=== PATIENT | female | born 1975 | race Caucasian/White ===

== ENCOUNTER 2016-11-02 08:30 | Emergency (ER) | payer BC ==
[2016-11-02] MEDS ORDERED: PROMETHAZINE HCL 25 MG/ML VIAL IVP ONE (08:54)
[2016-11-02 09:16] LABS: BASO % 0.6 % (0-6); EOS % 2.3 % (0-6); GRAN % 63.2 % (47-80); HEMATOCRIT 42.5 % (35.0-47.0); HEMOGLOBIN 13.5 gm/dl (11.6-16.0); LYMPH % 26.3 % (16-45); MEAN CELL VOLUME 92.4 fl (81-97); MEAN CORPUSCULAR HEMOGLOBIN 29.3 pg (27-33); MEAN CORPUSCULAR HGB CONC 31.8 g/dl (32-36); MEAN PLATELET VOLUME 9.9 fl (7.4-10.4); MONO % 7.6 % (0-9); PLATELET COUNT 697 K/uL (130-400); RED CELL DISTRIBUTION WIDTH 15.3 % (11.5-14.5); WHITE BLOOD COUNT W/O DIFF 14.7 K/uL (4.2-12.2)
--- NOTE | 2016-11-02 09:19 | Emergency Department Record ---
History of Present Illness - General Chief Complaint: Dizziness Stated Complaint: dizzy,high bp Time Seen by Provider: 11/02/16 08:45 Source: Patient Mode of Arrival: Ambulatory Limitations: No limitations - History of Present Illness Initial Comments: pt has been dizzy for 3 days. when she lays flat the room spins and she becomes nauseated. she has to stand slowly as she gets dizzy with this as well. no injury, no headache Onset/Timin -: Days(s) Timing: Unsure Description: Lightheadedness, Nausea, Off-balance, "Room spinning" History of Same: No History of Trauma: No Severity: Moderate Improves With: Rest - Leandro Coma Scale Eye Response: (4) Open spontaneously Motor Response: (6) Obeys commands Verbal Response: (5) Oriented Bentley Total: 15 - Symptoms of Stroke Symptoms of stroke: Dizziness, Vertigo - Related Data Home Medications Medication Instructions Recorded Confirmed Last Taken Loperamide HCl [Imodium A-D] 2 mg PO DAILY PRN 11/02/16 11/02/16 Unknown Previous Rx's Medication Instructions Recorded Meclizine HCl [Antivert] 25 mg PO Q8H #14 tablet 11/02/16 Allergies Allergy/AdvReac Type Severity Reaction Status Date / Time No Known Drug Allergies Allergy Verified 11/02/16 08:42 Travel Screening - Travel/Exposure Within Last 30 Days Have you traveled within the last 30 days?: No - Travel/Exposure Within Last Year Have you traveled outside the [place] in the last year?: No - Additonal Travel Details Have you been exposed to anyone with a communicable illness?: No - Travel Symptoms Symptom Screening: None Review of Systems Reviewed: No additional complaints except as noted below Constitutional: Reports: As per HPI. Denies: Chills, Fever, Malaise, Night sweats, Weakness, Weight change Eyes: Reports: As per HPI. Denies: Eye discharge, Eye pain, Photophobia, Vision change ENT: Reports: As per HPI. Denies: Congestion, Dental pain, Ear pain, Epistaxis , Hearing loss, Throat pain Respiratory: Reports: As per HPI. Denies: Cough, Dyspnea, Hemoptysis, Stridor, Wheezes Cardiovascular: Reports: As per HPI. Denies: Arrhythmia, Chest pain, Dyspnea on exertion, Edema, Murmurs, Orthopnea, Palpitations, Paroxysmal nocturnal dyspnea, Rheumatic Fever, Syncope Endocrine: Reports: As per HPI. Denies: Fatigue, Heat or cold intolerance, Polydipsia, Polyuria Gastrointestinal: Reports: As per HPI. Denies: Abdominal pain, Constipation, Diarrhea, Hematemesis, Hematochezia, Melena, Nausea, Vomiting Genitourinary: Reports: As per HPI. Denies: Abnormal menses, Discharge, Dyspareunia, Dysuria, Frequency, Hematuria, Incontinence, Retention, Urgency Musculoskeletal: Reports: As per HPI. Denies: Arthralgia, Back pain, Gout, Joint swelling, Myalgia, Neck pain Skin: Reports: As per HPI. Denies: Bruising, Change in color, Change in hair/ nails, Lesions, Pruritus, Rash Neurological: Reports: As per HPI. Denies: Abnormal gait, Confusion, Headache, Numbness, Paresthesias, Seizure, Tingling, Tremors, Vertigo, Weakness Psychiatric: Reports: As per HPI. Denies: Anxiety, Auditory hallucinations, Depression, Homicidal thoughts, Suicidal thoughts, Visual hallucinations Hematological/Lymphatic: Reports: As per HPI. Denies: Anemia, Blood Clots, Easy bleeding, Easy bruising, Swollen glands Past Medical History - SOCIAL HISTORY Smoking Status: Never smoker Alcohol Use: None Drug Use: None - RESPIRATORY Hx Respiratory Disorders: No - CARDIOVASCULAR Hx Cardio Disorders: No - NEURO Hx Neuro Disorders: No - GI Hx GI Disorders: Yes Hx Crohn's Disease: Yes Hx Ulcer: Yes - Hx Genitourinary Disorders: No - ENDOCRINE Hx Endocrine Disorders: No - MUSCULOSKELETAL Hx Musculoskeletal Disorders: No - PSYCH Hx Psych Problems: No - HEMATOLOGY/ONCOLOGY Hx Hematology/Oncology Disorders: No Family Medical History Any Significant Family History?: Yes Hx Diabetes: Grandparents Hx Stroke: Father, Grandparents Physical Exam - General General Appearance: Alert, Oriented x3, Cooperative, Mild distress - Head Head exam: Normal inspection - Eye Eye exam: Normal appearance, PERRL, EOMI Pupils: Normal accommodation - ENT ENT exam: Normal exam, Mucous membranes moist, Normal external ear exam, Normal orophraynx, TM's normal bilaterally Ear exam: Normal external inspection. negative: External canal tenderness Nasal Exam: Normal inspection. negative: Discharge, Sinus tenderness Mouth exam: Normal external inspection, Tongue normal Teeth exam: Normal inspection. negative: Dental caries Throat exam: Normal inspection. negative: Tonsillar erythema, Tonsillar exudate - Neck Neck exam: Normal inspection, Full ROM. negative: Tenderness - Respiratory Respiratory exam: Normal lung sounds bilaterally. negative: Respiratory distress - Cardiovascular Cardiovascular Exam: Regular rate, Normal rhythm, Normal heart sounds - GI/Abdominal GI/Abdominal exam: Soft, Normal bowel sounds. negative: Tenderness - Rectal Rectal exam: Deferred - exam: Deferred - Extremities Extremities exam: Normal inspection, Full ROM, Normal capillary refill. negative: Tenderness - Back Back exam: Reports: Normal inspection, Full ROM. Denies: Muscle spasm, Rash noted, Tenderness - Neurological Neurological exam: Alert, CN II-XII intact, Normal gait, Oriented X3, Reflexes normal - Psychiatric Psychiatric exam: Normal affect, Normal mood - Skin Skin exam: Dry, Intact, Normal color, Warm Course Vital Signs 11/02/16 08:37 Temperature 98.1 F Pulse Rate 83 Respiratory 20 Rate Blood Pressure 147/91 Pulse Ox 94 L - Reevaluation(s) Reevaluation #1: 11/02/16 09:51 pt feels better Reevaluation #2: 11/02/16 10:04 pt feels much better. she states she always has a high wbc Medical Decision Making - Lab Data Result diagrams: 11/02/16 09:07 11/02/16 09:07 Disposition Disposition: Discharge Clinical Impression: Vertigo Benign positional vertigo Qualifiers: Laterality: unspecified laterality Qualified Code(s): H81.10 - Benign paroxysmal vertigo, unspecified ear Hypertension Qualifiers: Hypertension type: essential hypertension Qualified Code(s): I10 - Essential ( primary) hypertension Disposition: Home, Self-Care Condition: (1) Good Instructions: Vertigo (ED), Benign Paroxysmal Positional Vertigo (ED), Hypertension (ED) Additional Instructions: follow up with family doctor next week. return sooner if worse. recheck blood pressure daily Prescriptions: Meclizine HCl [Antivert] 25 mg PO Q8H #14 tablet Forms: Patient Portal Access
[2016-11-02 09:27] LABS: ANION GAP 10.6 (7-16); BLOOD UREA NITROGEN 18 mg/dL (7-17); CARBON DIOXIDE 24.4 mmol/L (22-30); CREATININE 0.7 mg/dL (0.52-1.04); EST GLOMERULAR FILTRATION RATE > 60 ml/min; GLUCOSE,RANDOM 98 mg/dL (70-110)
== END 2016-11-02 10:23 | disposition home or self-care (01) ==
LOC: ER 08:30
DX: H81.10 Benign paroxysmal vertigo, unspecified ear (principal); I10 Essential (primary) hypertension; R11.0 Nausea
CPT/HCPCS: 70450; 80048; 85025; 96374; 99284; J2550

== ENCOUNTER 2017-01-21 10:12 | Emergency (ER) | payer BC ==
[2017-01-21] MEDS ORDERED: 0.9 % SODIUM CHLORIDE 1,000 ML BAG IV ONE (10:49)
--- NOTE | 2017-01-21 10:50 | Emergency Department Record ---
History of Present Illness - General Chief Complaint: Abdominal Pain Stated Complaint: BACK PAIN Time Seen by Provider: 01/21/17 10:37 Source: Patient Mode of Arrival: Wheelchair - History of Present Illness Initial Comments: The patient was sent here from [facility], [place] because of an elevated WBC and 3 days of abdominal pain. Her pain is epigastric, RUQ, LUQ, LLQ, it radiates through to her back at the lower thoracic level and around both sides posteriorly. She has nausea without vomiting, no f,c,URI symptoms. She had her GB removed 18 months ago, and has a history of colitis with chronic diarrhea on immodium. She denies black or bloody stools. MD Complaint: Abdominal pain Onset/Timin -: Days(s) Location: Diffuse, Epigastric Radiation: Back Migration to: No migration Severity: Moderate Quality: Aching Consistency: Constant Improves With: Nothing Worsens With: Other Associated Symptoms: Diarrhea, Nausea - Related Data LMP (females 10-50): Current Patient : No Home Medications Medication Instructions Recorded Confirmed Last Taken Loperamide HCl [Imodium A-D] 2 mg PO DAILY PRN 11/02/16 01/21/17 Unknown Previous Rx's Medication Instructions Recorded Ciprofloxacin HCl [Cipro] 500 mg PO Q12HR #14 tablet 01/21/17 Allergies Allergy/AdvReac Type Severity Reaction Status Date / Time No Known Drug Allergies Allergy Unverified 01/21/17 08:47 Travel Screening - Travel/Exposure Within Last 30 Days Have you traveled within the last 30 days?: No Review of Systems Reviewed: No additional complaints except as noted below Constitutional: Reports: As per HPI. Denies: Chills, Fever, Malaise, Night sweats, Weakness, Weight change Eyes: Reports: As per HPI. Denies: Eye discharge, Eye pain, Photophobia, Vision change ENT: Reports: As per HPI. Denies: Congestion, Dental pain, Ear pain, Epistaxis , Hearing loss, Throat pain Respiratory: Reports: As per HPI. Denies: Cough, Dyspnea, Hemoptysis, Stridor, Wheezes Cardiovascular: Reports: As per HPI. Denies: Arrhythmia, Chest pain, Dyspnea on exertion, Edema, Murmurs, Orthopnea, Palpitations, Paroxysmal nocturnal dyspnea, Rheumatic Fever, Syncope Endocrine: Reports: As per HPI. Denies: Fatigue, Heat or cold intolerance, Polydipsia, Polyuria Gastrointestinal: Reports: As per HPI. Denies: Abdominal pain, Constipation, Diarrhea, Hematemesis, Hematochezia, Melena, Nausea, Vomiting Genitourinary: Reports: As per HPI. Denies: Abnormal menses, Discharge, Dyspareunia, Dysuria, Frequency, Hematuria, Incontinence, Retention, Urgency Musculoskeletal: Reports: As per HPI. Denies: Arthralgia, Back pain, Gout, Joint swelling, Myalgia, Neck pain Skin: Reports: As per HPI. Denies: Bruising, Change in color, Change in hair/ nails, Lesions, Pruritus, Rash Neurological: Reports: As per HPI. Denies: Abnormal gait, Confusion, Headache, Numbness, Paresthesias, Seizure, Tingling, Tremors, Vertigo, Weakness Psychiatric: Reports: As per HPI. Denies: Anxiety, Auditory hallucinations, Depression, Homicidal thoughts, Suicidal thoughts, Visual hallucinations Hematological/Lymphatic: Reports: As per HPI. Denies: Anemia, Blood Clots, Easy bleeding, Easy bruising, Swollen glands Past Medical History - SOCIAL HISTORY Smoking Status: Never smoker Alcohol Use: None Drug Use: None - RESPIRATORY Hx Respiratory Disorders: No - CARDIOVASCULAR Hx Cardio Disorders: No - NEURO Hx Neuro Disorders: No Hx Dizziness: Yes - GI Hx GI Disorders: Yes Hx Crohn's Disease: Yes Comment:: colitis - Hx Genitourinary Disorders: No - ENDOCRINE Hx Endocrine Disorders: No - MUSCULOSKELETAL Hx Musculoskeletal Disorders: No - PSYCH Hx Psych Problems: No - HEMATOLOGY/ONCOLOGY Hx Hematology/Oncology Disorders: No Family Medical History Any Significant Family History?: Yes Hx Diabetes: Grandparents Hx Stroke: Father, Grandparents Physical Exam - General General Appearance: Alert, Oriented x3, Cooperative, Mild distress, Other (obese , standing at bedside "its feels better to stand") - Head Head exam: Normal inspection - Eye Eye exam: Normal appearance, PERRL, EOMI Pupils: Normal accommodation - ENT ENT exam: Normal exam, Mucous membranes dry, Normal external ear exam, Normal orophraynx, TM's normal bilaterally Ear exam: Normal external inspection. negative: External canal tenderness Nasal Exam: Normal inspection. negative: Discharge, Sinus tenderness Mouth exam: Normal external inspection, Tongue normal Teeth exam: Normal inspection. negative: Dental caries Throat exam: Normal inspection. negative: Tonsillar erythema, Tonsillar exudate - Neck Neck exam: Normal inspection, Full ROM. negative: Tenderness - Respiratory Respiratory exam: Normal lung sounds bilaterally. negative: Respiratory distress - Cardiovascular Cardiovascular Exam: Regular rate, Normal rhythm, Normal heart sounds - GI/Abdominal GI/Abdominal exam: Soft, Normal bowel sounds, Tenderness (Epigastric, RUQ, LUQ and LLQ tender on palpation). negative: Rebound, Rigid - Rectal Rectal exam: Deferred - exam: Deferred - Extremities Extremities exam: Normal inspection, Full ROM, Normal capillary refill. negative: Tenderness - Back Back exam: Reports: Normal inspection, Full ROM. Denies: CVA tenderness (R), CVA tenderness (L), Muscle spasm, Rash noted, Tenderness, Vertebral tenderness - Neurological Neurological exam: Alert, CN II-XII intact, Normal gait, Oriented X3, Reflexes normal - Psychiatric Psychiatric exam: Normal affect, Normal mood - Skin Skin exam: Dry, Intact, Normal color, Warm Course Vital Signs 01/21/17 10:14 Temperature 98.1 F Pulse Rate 76 Respiratory 20 Rate Blood Pressure 147/110 Pulse Ox 99 - Reevaluation(s) Reevaluation #1: The patient states that her pain remain unchanged after zofran and bentyl. CT shows no acute abnormality, chronic small lymph nodes in colon consistent with her known enteritis, and no wall thickening or inflamatory changes at this time. There is a small fat containing umbilical hernia. Discussed results with An Eden N.P. who referred this case to the EDept. She agrees to follow patient in the clinic, get her PCP follow up care. GI consult will be obtained at discharge today. 01/21/17 14:13 Medical Decision Making - Management Options MDM Management: Additional Work-up Planned (e.g. ADM/Transfer/OP Study) ( Consult GI) - Data Complexity MDM Data: Labs Ordered and/or Reviewed (WBC 14.8 58 neutr.), X-Ray Ordered and/ or Reviewed (AbdPelvis Contrast CT: No acute abnormality, small mesenteric lymphnodes consistent with enteritis, but no wall thickening or inflamatory changes. Small fat-containing umbilical hernia noted.) Disposition Disposition: Discharge Clinical Impression: Chronic nonspecific colitis Abdominal pain Qualifiers: Abdominal location: unspecified location Qualified Code(s): R10.9 - Unspecified abdominal pain Disposition: Home, Self-Care Condition: (1) Good Instructions: Abdominal Pain (ED) Additional Instructions: Take antibiotics as directed until gone. Follow with Alo Mackay as needed. [facility] Consult to [facility] as instructed. Prescriptions: Ciprofloxacin HCl [Cipro] 500 mg PO Q12HR #14 tablet Referrals: DIAMOND HERNANDEZ [DOCTOR OF OSTEOPATH] - Quality - Quality Measures Quality Measures: N/A - Blood Pressure Screening Blood Pressure Classification: Hypertensive Reading Systolic Measurement: 147 Diastolic Measurement: 110 Screening for High Blood Pressure: < Second Hypertensive BP, F/U Documented > [ G8950] Second Hypertensive Follow-up Interventions: Referral to alternative/primary care provider.
[2017-01-21] MEDS ORDERED: ONDANSETRON HCL IV 4 MG/2 ML VIAL IVP ONE (11:00)
[2017-01-21] MEDS ORDERED: DICYCLOMINE HCL 10 MG/ML AMPUL IM ONE (11:01)
--- NOTE | 2017-01-22 07:18 | CT SCAN REPORT ---
EXAM: CT OF THE ABDOMEN AND PELVIS WITH CONTRAST HISTORY: PAIN. TECHNIQUE: Sequential axial images were obtained from the diaphragms through the ischiorectal fossa after intravenous and oral administration of 100 ml of Omnipaque 300 contrast material. FINDINGS: The visualized lung bases are clear. The liver appears homogeneous. The gallbladder has been surgically removed. The pancreas and spleen appear normal. The adrenal glands and kidneys appear normal. The small and large bowel appears normal. There are small mesenteric lymph nodes. Findings are likely related to gastroenteritis. The urinary bladder appears normal. The uterus and adnexal structures are normal. The osseous structures are normal. IMPRESSION: 1. NONSPECIFIC SMALL MESENTERIC LYMPH NODES. FINDINGS ARE LIKELY RELATED TO ENTERITIS. 2. THE GALLBLADDER HAS BEEN SURGICALLY REMOVED. NO SMALL OR LARGE BOWEL ABNORMALITIES. 3. FAT CONTAINING UMBILICAL HERNIA. JOB NUMBER: [id number] [facility]
== END 2017-01-21 14:55 | disposition home or self-care (01) ==
LOC: ER 10:12
DX: K52.9 Noninfective gastroenteritis and colitis, unspecified (principal); R10.13 Epigastric pain; R19.7 Diarrhea, unspecified; R11.0 Nausea; D72.829 Elevated white blood cell count, unspecified
CPT/HCPCS: 99284 ×2; 96374; 96372; 96361; 74177; Q9967; J2405

== ENCOUNTER 2017-12-01 08:42 | Emergency (ER) | payer BC ==
[2017-12-01] MEDS ORDERED: 0.9 % SODIUM CHLORIDE 1,000 ML BAG IV ONE (09:21)
[2017-12-01] MEDS ORDERED: ONDANSETRON HCL IV 4 MG/2 ML VIAL IV ONE (09:21)
[2017-12-01] MEDS ORDERED: CEFTRIAXONE SODIUM 1 GM in 0.9 % SODIUM CHLORIDE 100ML 100 ML IVPB ONE (09:22)
--- NOTE | 2017-12-01 09:29 | Emergency Department Record ---
History of Present Illness - General Chief Complaint: Abdominal Pain Stated Complaint: ABD PAIN Time Seen by Provider: 12/01/17 09:05 Source: Patient Mode of Arrival: Ambulatory Limitations: No limitations - History of Present Illness Initial Comments: The patient is here due to AP for one week. The pain is located just above the umbilicus and is aching. It is worse with any palpation or pressure being placed there. The patient denies any nausea, vomiting, new diarrhea, fever, dysuria, or chills. She does have a hx of Ulcerative Colitis but that is a chronic problem and there has been no changes with that issue. She has had her GB removed but still has her appendix. MD Complaint: Abdominal pain Onset/Timin -: Week(s) Location: Periumbilical Radiation: None Severity scale (1-10): 3 Quality: Other Consistency: Constant Improves With: Nothing Worsens With: Movement Associated Symptoms: Denies other symptoms - Related Data LMP (females 10-50): This week Patient : No Previous Rx's Medication Instructions Recorded Amoxicillin/Potassium Clav 10 ml PO BID #140 ml 12/01/17 [Augmentin 400Mg/5Ml] Allergies Allergy/AdvReac Type Severity Reaction Status Date / Time No Known Drug Allergies Allergy Unverified 01/21/17 08:47 Travel Screening - Travel/Exposure Within Last 30 Days Have you traveled within the last 30 days?: No Review of Systems Constitutional: Denies: Chills, Fever Eyes: Denies: Eye discharge ENT: Denies: Congestion, Other Respiratory: Denies: Cough, Dyspnea Past Medical History - SOCIAL HISTORY Smoking Status: Never smoker Alcohol Use: None Drug Use: None - RESPIRATORY Hx Respiratory Disorders: No - CARDIOVASCULAR Hx Cardio Disorders: No - NEURO Hx Neuro Disorders: No Hx Dizziness: Yes - GI Hx GI Disorders: Yes Hx Crohn's Disease: Yes Comment:: colitis - Hx Genitourinary Disorders: No - ENDOCRINE Hx Endocrine Disorders: No - MUSCULOSKELETAL Hx Musculoskeletal Disorders: No - PSYCH Hx Psych Problems: No - HEMATOLOGY/ONCOLOGY Hx Hematology/Oncology Disorders: No Family Medical History Any Significant Family History?: Yes Hx Diabetes: Grandparents Hx Stroke: Father, Grandparents Physical Exam - General General Appearance: Alert, Oriented x3, Cooperative, No acute distress - Head Head exam: Atraumatic, Normocephalic, Normal inspection - Eye Eye exam: Normal appearance, PERRL - Neck Neck exam: Normal inspection, Full ROM. negative: Tenderness - Respiratory Respiratory exam: Normal lung sounds bilaterally. negative: Respiratory distress - Cardiovascular Cardiovascular Exam: Regular rate, Normal rhythm, Normal heart sounds - GI/Abdominal GI/Abdominal exam: Soft, Normal bowel sounds, Tenderness (There is tenderness just above the umbilicus where there is a 6x4 cm area of erythema present. There is no palpable abscess or hernia appreciated.). negative: Guarding, Pulsatile mass, Rebound, Rigid - Extremities Extremities exam: Normal inspection, Full ROM, Normal capillary refill. negative: Tenderness - Neurological Neurological exam: Alert. negative: Motor sensory deficit Course Vital Signs 12/01/17 09:01 Temperature 98.2 F Pulse Rate [ 88 Pulse Ox Probe] Respiratory 20 Rate Blood Pressure 178/121 [Left Arm] Pulse Ox 100 - Reevaluation(s) Reevaluation #1: The patent is doing better. I did discuss the inflamed hernia and will consult Dr. Mullins for Gen surg. The patient understands the need for NPO. 12/01/17 11:43 Reevaluation #2: The patient is doing very well at this time. She is resting comfortably with no pain or discomfort. I did discuss the case with Dr. Mullins and he accepts the patient for surgery. Due to the surgical schedule he is not able to do it until tomorrow and would like the patient discharged today. The patient understands this and will plan on the surgery tomorrow. I also did discuss the issues with the CT and infected hernia and the appendicolith. She is to go home on Augmentin and be NPO past midnight and have the surgery tomorrow at [facility]. 12/01/17 12:27 12/01/17 12:32 Reevaluation #3: I also did discuss the need to see her PCP for her BP. 12/01/17 14:12 Medical Decision Making - Data Complexity MDM Data: Labs Ordered and/or Reviewed, X-Ray Ordered and/or Reviewed - Lab Data Result diagrams: 12/01/17 09:55 12/01/17 09:55 - Radiology Data Radiology results: Report reviewed (CT: Periumbilical hernia with no bowel but appearing inflamed and infected. Incidental finding of Appendicolith.) Disposition Disposition: Discharge Clinical Impression: Abdominal wall hernia Disposition: Home, Self-Care Condition: (2) Stable Instructions: Abdominal Pain (ED) Additional Instructions: Please take the Clindamycin as directed and plan on surgery tomorrow with Dr. Mullins at [facility]. Please do not eat past midnight and take your home pain medicines. Return to the ER for any worsening symptoms, pain, fever, or vomiting. Prescriptions: Amoxicillin/Potassium Clav [Augmentin 400Mg/5Ml] 10 ml PO BID #140 ml Forms: Patient Portal Access Time of Disposition: 12:32 Quality - Quality Measures Quality Measures: N/A - Blood Pressure Screening View Details: Yes Does Patient Have Any of the Following: Active Dx of HTN Blood Pressure Classification: Hypertensive Reading Systolic Measurement: 171 Diastolic Measurement: 114 Screening for High Blood Pressure: Patient Exclusion, Hx of HTN [G9744]
[2017-12-01 10:02] LABS: HEMATOCRIT 42.7 % (35.0-47.0); MEAN CELL VOLUME 94.1 fl (81-97); MEAN CORPUSCULAR HEMOGLOBIN 30.8 pg (27-33); MEAN CORPUSCULAR HGB CONC 32.8 g/dl (32-36); MEAN PLATELET VOLUME 10.1 fl (7.4-10.4); PLATELET COUNT 602 K/uL (130-400); RED BLOOD COUNT 4.54 M/uL (3.80-5.40); RED CELL DISTRIBUTION WIDTH 15.2 % (11.5-14.5); WHITE BLOOD COUNT W/O DIFF 14.3 K/uL (4.2-12.2)
[2017-12-01 10:12] LABS: BLOOD UREA NITROGEN 15 mg/dL (6-20); PLATELET ESTIMATE NORMAL (NORMAL)
[2017-12-01 10:13] LABS: CREATININE 0.7 mg/dL (0.5-0.9); EST GLOMERULAR FILTRATION RATE > 60 mL/min; TOTAL PROTEIN 7.7 g/dL (6.6-8.7)
[2017-12-01 10:15] LABS: GLUCOSE,RANDOM 103 mg/dL (74-109)
[2017-12-01 10:18] LABS: ALKALINE PHOSPHATASE 87 U/L (35-104); ALT/SGPT 14 U/L (<33); AST/SGOT 16 U/L (10.0-35.0); BILIRUBIN,DIRECT < 0.2 mg/dL (0-0.3); LIPASE 29 U/L (13-60)
[2017-12-01] MEDS ORDERED: KETOROLAC 30 MG/ML VIAL IVP ONE (10:25)
--- NOTE | 2017-12-02 09:57 | CT SCAN REPORT ---
EXAM: CT OF THE ABDOMEN AND PELVIS WITHOUT CONTRAST HISTORY: ABDOMINAL PAIN ABOVE THE UMBILICUS FOR A WEEK. CHOLECYSTECTOMY. TECHNIQUE: Axial CT scan of the abdomen and pelvis was performed without oral or IV contrast. Comparison: CT abdomen and pelvis 01/21/17. FINDINGS: Postop cholecystectomy as before. No intrarenal calculi or hydronephrosis identified on either side. No hydroureter seen on either side with no definite ureteral calculus evident on either side and no bladder calculus evident. There is an anterior abdominal wall hernia containing adipose tissue, but no bowel. This was present previously as well, but has increased in size. The mouth of the hernia in the anterior abdominal wall measures about 1.7 cm in diameter and the hernia within the subcutaneous tissues itself measures about 5.1 cm in transverse x 4 cm in AP diameters and has some increased density suggesting some current inflammatory change. This inflammatory density appears to lead to the skin surface where there appears to be some thickening of the skin probably representing some associated cellulitis in the periumbilical region and correlation with physical exam suggested. Evaluation of the bowel and viscera itself limited by the lack of oral and IV contrast. Given this limitation, no definite hepatic or splenic mass seen. The spleen appears very small, but there is no history of prior splenectomy and presumably this is simply a very small, but otherwise unremarkable spleen. No definite adrenal, pancreatic, or renal mass identified. There is some mild scattered diverticulosis in the colon and there is probably a very large appendicolith at the base of the appendix measuring approximately 1.7 cm in size although no definite additional inflammatory changes seen to suggest acute appendicitis currently. There are numerous prominent scattered mesenteric nodes throughout the abdomen which may represent some mesenteric adenitis. No free intraperitoneal air or free intraperitoneal fluid identified. Mild spurring in the thoracic spine. IMPRESSION: 1. POSTOP CHOLECYSTECTOMY. 2. PROMINENT ANTERIOR ABDOMINAL WALL HERNIA SUPERIOR TO THE UMBILICUS, WITH INFLAMMATORY TYPE CHANGES LEADING FROM THIS TO THE SKIN ALONG THE SUPERIOR ASPECT OF THE UMBILICUS LIKELY REPRESENTING INFLAMMATORY CHANGE ASSOCIATED WITH THIS ABDOMINAL WALL HERNIA. NO BOWEL WITHIN THE HERNIA. 3. NUMEROUS MILDLY PROMINENT SCATTERED MESENTERIC NODES MAY REPRESENT MESENTERIC ADENITIS. 4. PROBABLE LARGE CALCIFIED APPENDICOLITH ALTHOUGH NO ADDITIONAL FINDINGS TO SUGGEST ACUTE APPENDICITIS CURRENTLY. [facility]: [id number] [facility]
== END 2017-12-01 13:04 | disposition home or self-care (01) ==
LOC: ER 08:42
DX: K43.9 Ventral hernia without obstruction or gangrene (principal)
CPT/HCPCS: 74176; 80048; 80076; 83690; 84703; 85027; 96365; 96375; 99284; J1885; J2405; J7030

== ENCOUNTER 2017-12-24 04:43 | Emergency (ER) | payer BC ==
[2017-12-24] MEDS ORDERED: 0.9 % SODIUM CHLORIDE 1,000 ML BAG IV ONE (05:13)
[2017-12-24] MEDS ORDERED: HYDROMORPHONE HCL 2 MG/ML VIAL IVP ONE (05:15)
[2017-12-24] MEDS ORDERED: ONDANSETRON HCL IV 4 MG/2 ML VIAL IVP ONE (05:15)
[2017-12-24 05:22] LABS: BASO % 0.5 % (0-6); GRAN % 51.1 % (47-80); HEMATOCRIT 43.3 % (35.0-47.0); HEMOGLOBIN 14.5 gm/dl (11.6-16.0); MEAN CELL VOLUME 91.9 fl (81-97); MEAN CORPUSCULAR HEMOGLOBIN 30.8 pg (27-33); MEAN CORPUSCULAR HGB CONC 33.5 g/dl (32-36); MEAN PLATELET VOLUME 10.6 fl (7.4-10.4); MONO % 10.4 % (0-9); PLATELET COUNT 673 K/uL (130-400); RED BLOOD COUNT 4.71 M/uL (3.80-5.40); RED CELL DISTRIBUTION WIDTH 14.9 % (11.5-14.5); WHITE BLOOD COUNT W/O DIFF 15.9 K/uL (4.2-12.2)
--- NOTE | 2017-12-24 05:23 | Emergency Department Record ---
History of Present Illness - General Chief Complaint: Abdominal Pain Stated Complaint: ABDOMINAL PAIN Time Seen by Provider: 12/24/17 05:06 Source: Patient Mode of Arrival: Ambulatory Limitations: No limitations - History of Present Illness Initial Comments: pt c/o llq ap that is burning over the last 4days and getting progressively worse. she had surgery on 12/01 for an umbilical that was infected. it was left open and a wound vac was placed but has now been removed. she is scheduled to have the incision closed tomorrow. she has never had anything like this pain before. no n/v/c/d. no uti symptoms MD Complaint: Abdominal pain Onset/Timin -: Days(s) Location: LLQ Radiation: LUQ Severity: Moderate Severity scale (1-10): 7 Quality: Burning, Fullness Consistency: Intermittent, Getting worse Improves With: Rest Worsens With: Movement Associated Symptoms: Denies other symptoms - Related Data LMP (females 10-50): 1 month ago Patient : No Home Medications Medication Instructions Recorded Confirmed Last Taken Hydrocodone/APAP Elixir [[place]ont 10 ml PO DAILY PRN 12/24/17 12/24/17 Unknown 7.5mg/325mg/15ml] Previous Rx's Medication Instructions Recorded Amoxicillin/Potassium Clav 10 ml PO BID #200 ml 12/24/17 [Augmentin 400Mg/5Ml] Hydrocodone/APAP Elixir [Be[place]ont 10 ml PO QID PRN #90 ml 12/24/17 7.5mg/325mg/15ml] Allergies Allergy/AdvReac Type Severity Reaction Status Date / Time No Known Drug Allergies Allergy Verified 12/24/17 04:47 Travel Screening - Travel/Exposure Within Last 30 Days Have you traveled within the last 30 days?: No - Travel Symptoms Symptom Screening: None Review of Systems Reviewed: No additional complaints except as noted below Constitutional: Reports: As per HPI. Denies: Chills, Fever, Malaise, Night sweats, Weakness, Weight change Eyes: Reports: As per HPI. Denies: Eye discharge, Eye pain, Photophobia, Vision change ENT: Reports: As per HPI. Denies: Congestion, Dental pain, Ear pain, Epistaxis , Hearing loss, Throat pain Respiratory: Reports: As per HPI. Denies: Cough, Dyspnea, Hemoptysis, Stridor, Wheezes Cardiovascular: Reports: As per HPI. Denies: Arrhythmia, Chest pain, Dyspnea on exertion, Edema, Murmurs, Orthopnea, Palpitations, Paroxysmal nocturnal dyspnea, Rheumatic Fever, Syncope Endocrine: Reports: As per HPI. Denies: Fatigue, Heat or cold intolerance, Polydipsia, Polyuria Gastrointestinal: Reports: As per HPI, Abdominal pain. Denies: Constipation, Diarrhea, Hematemesis, Hematochezia, Melena, Nausea, Vomiting Genitourinary: Reports: As per HPI. Denies: Abnormal menses, Discharge, Dyspareunia, Dysuria, Frequency, Hematuria, Incontinence, Retention, Urgency Musculoskeletal: Reports: As per HPI. Denies: Arthralgia, Back pain, Gout, Joint swelling, Myalgia, Neck pain Skin: Reports: As per HPI. Denies: Bruising, Change in color, Change in hair/ nails, Lesions, Pruritus, Rash Neurological: Reports: As per HPI. Denies: Abnormal gait, Confusion, Headache, Numbness, Paresthesias, Seizure, Tingling, Tremors, Vertigo, Weakness Psychiatric: Reports: As per HPI. Denies: Anxiety, Auditory hallucinations, Depression, Homicidal thoughts, Suicidal thoughts, Visual hallucinations Hematological/Lymphatic: Reports: As per HPI. Denies: Anemia, Blood Clots, Easy bleeding, Easy bruising, Swollen glands Past Medical History - SOCIAL HISTORY Smoking Status: Never smoker - RESPIRATORY Hx Respiratory Disorders: No - CARDIOVASCULAR Hx Cardio Disorders: No - NEURO Hx Neuro Disorders: Yes Hx Dizziness: Yes (vertigo) - GI Hx GI Disorders: Yes Comment:: colitis - Hx Genitourinary Disorders: No - ENDOCRINE Hx Endocrine Disorders: No - MUSCULOSKELETAL Hx Musculoskeletal Disorders: No - PSYCH Hx Psych Problems: No - HEMATOLOGY/ONCOLOGY Hx Hematology/Oncology Disorders: No Family Medical History Any Significant Family History?: Yes Hx Diabetes: Grandparents Hx Stroke: Father, Grandparents Physical Exam - General General Appearance: Alert, Oriented x3, Cooperative, Mild distress - Head Head exam: Normal inspection - Eye Eye exam: Normal appearance, PERRL, EOMI Pupils: Normal accommodation - ENT ENT exam: Normal exam, Mucous membranes moist, Normal external ear exam, Normal orophraynx Ear exam: Normal external inspection. negative: External canal tenderness Nasal Exam: Normal inspection. negative: Discharge, Sinus tenderness Mouth exam: Normal external inspection, Tongue normal Teeth exam: Normal inspection. negative: Dental caries Throat exam: Normal inspection. negative: Tonsillar erythema, Tonsillar exudate - Neck Neck exam: Normal inspection, Full ROM. negative: Tenderness - Respiratory Respiratory exam: Normal lung sounds bilaterally. negative: Respiratory distress - Cardiovascular Cardiovascular Exam: Regular rate, Normal rhythm, Normal heart sounds - GI/Abdominal GI/Abdominal exam: Soft, Normal bowel sounds, Tenderness (llq and luq) - Rectal Rectal exam: Deferred - exam: Deferred - Extremities Extremities exam: Normal inspection, Full ROM, Normal capillary refill. negative: Tenderness - Back Back exam: Reports: Normal inspection, Full ROM. Denies: Muscle spasm, Rash noted, Tenderness - Neurological Neurological exam: Alert, CN II-XII intact, Normal gait, Oriented X3 - Psychiatric Psychiatric exam: Normal affect, Normal mood - Skin Skin exam: Dry, Intact, Normal color, Warm Course Vital Signs 12/24/17 04:48 Temperature 98.9 F Pulse Rate [ 98 H Pulse Ox Probe] Respiratory 20 Rate Blood Pressure 142/89 [Left Arm] Pulse Ox 96 - Reevaluation(s) Reevaluation #1: 12/24/17 06:52 d/w dr carmona Medical Decision Making - Lab Data Result diagrams: 12/24/17 04:58 12/24/17 04:58 Disposition Disposition: Discharge Clinical Impression: Epiploic appendagitis Disposition: Home, Self-Care Condition: (1) Good Instructions: Acute Abdominal Pain (ED) Additional Instructions: follow up with dr carmona tomorrow. return sooner if worse. Prescriptions: Amoxicillin/Potassium Clav [Augmentin 400Mg/5Ml] 10 ml PO BID #200 ml Hydrocodone/APAP Elixir [[place] 7.5mg/325mg/15ml] 10 ml PO QID PRN #90 ml PRN Reason: Abdominal Pain Forms: Patient Portal Access Quality - Quality Measures Quality Measures: N/A - Blood Pressure Screening Does Patient Have Any of the Following: No Blood Pressure Classification: Pre-Hypertensive BP Reading Systolic Measurement: 126 Diastolic Measurement: 83 Screening for High Blood Pressure: < Pre-Hypertensive BP, F/U Documented > [ G8950] Pre-Hypertensive Follow-up Interventions: Follow-up with rescreen every year.
[2017-12-24 05:35] LABS: BLOOD UREA NITROGEN 15 mg/dL (6-20); CREATININE 0.6 mg/dL (0.5-0.9); EST GLOMERULAR FILTRATION RATE > 60 mL/min
[2017-12-24 05:36] LABS: TOTAL PROTEIN 7.7 g/dL (6.6-8.7)
[2017-12-24 05:38] LABS: GLUCOSE,RANDOM 101 mg/dL (74-109)
[2017-12-24 05:40] LABS: ALT/SGPT 15 U/L (<33)
[2017-12-24 05:41] LABS: ALB/GLOB RATIO 1.1 (1.1-1.8); ALKALINE PHOSPHATASE 92 U/L (35-104); AST/SGOT 14 U/L (10.0-35.0); LIPASE 29 U/L (13-60)
[2017-12-24 06:42] LABS: URINE APPEARANCE CLEAR; URINE BILIRUBIN NEGATIVE (NEGATIVE); URINE BLOOD SMALL (NEGATIVE); URINE COLOR YELLOW; URINE GLUCOSE (UA) NEGATIVE (NEGATIVE); URINE KETONE NEGATIVE (NEGATIVE); URINE LEUKOCYTE ESTERASE NEGATIVE (NEGATIVE); URINE NITRITE NEGATIVE (NEGATIVE); URINE PROTEIN NEGATIVE (NEGATIVE); URINE UROBILINOGEN 0.2 E.U./dL (0.20 - 1.00)
[2017-12-24 06:43] LABS: URINE BACTERIA NONE SEEN; URINE EPITHELIAL CELLS 0 - 2 (FEW); URINE RBC 0 - 2 (NONE SEEN); URINE WBC 0 - 2 (0-2/hpf)
--- NOTE | 2017-12-25 22:11 | CT SCAN REPORT ---
EXAM: CT SCAN ABDOMEN/PELVIS WO CONTRAST HISTORY: ABDOMINAL PAIN ON LEFT SIDE FOR FOUR DAYS. TECHNIQUE: Sequential axial images were obtained from the diaphragms through the ischiorectal fossa without intravenous or oral contrast administration. FINDINGS: The visualized lung bases appear normal. The non-opacified liver appears normal. The gallbladder has been surgically removed. The pancreas and spleen appear normal. The adrenal glands and kidneys appear normal. No CT findings suggestive of obstructive uropathy. The small bowel appears normal. The appendix is visualized and appears normal. The uterus and adnexal structures are normal. There is mild diverticular disease. There is a focal area of inflammatory change along the antimesenteric border of the distal descending colon. This may represent epiploic appendagitis. The urinary bladder appears normal. The osseous structures are grossly unremarkable. IMPRESSION: 1. FINDINGS SUGGESTIVE OF EPIPLOIC APPENDAGITIS INVOLVING THE DESCENDING COLON. 2. STATUS POST CHOLECYSTECTOMY SURGICAL CHANGE. JOB NUMBER: [id number] MTDD
== END 2017-12-24 07:19 | disposition home or self-care (01) ==
LOC: ER 04:43
DX: K63.89 Other specified diseases of intestine (principal)
CPT/HCPCS: 74176; 80053; 81001; 83690; 85025; 96361; 96374; 96375; 99284; J2405; J7030

== ENCOUNTER 2018-08-02 16:10 | Emergency (ER) | payer BC | END 2018-08-02 17:09 | disposition left against medical advice (07) | LOC: ER 16:10 | DX: Z53.21 Procedure and treatment not carried out due to patient leaving prior to being seen by health care provider (principal) ==

== ENCOUNTER 2018-08-03 12:35 | Emergency (ER) | payer BC ==
[2018-08-03] MEDS ORDERED: 0.9 % SODIUM CHLORIDE 1,000 ML BAG IV ONE (13:38)
--- NOTE | 2018-08-03 13:38 | Emergency Department Record ---
History of Present Illness - General Chief Complaint: Abdominal Pain Stated Complaint: ABDOMINAL PAIN Time Seen by Provider: 08/03/18 13:28 Source: Patient Mode of Arrival: Wheelchair Limitations: No limitations - History of Present Illness Initial Comments: pt has been having epigastric pain for 3 days. it is unlike anything she has had. nothing helps. no n/v/ MD Complaint: Abdominal pain Onset/Timin -: Days(s) Location: Epigastric Radiation: None Severity: Mild Severity scale (1-10): 4 Quality: Cramping Consistency: Constant Improves With: Nothing Worsens With: Movement Associated Symptoms: Denies other symptoms - Related Data LMP (females 10-50): Current Previous Rx's Medication Instructions Recorded Amoxicillin/Potassium Clav 1 each PO BID #14 tablet 08/03/18 [Augmentin 875Mg/125Mg] Hydrocodone/Acetaminophen [Cook 1 each PO Q6HR #7 tablet 08/03/18 5-325 Tablet] Allergies Allergy/AdvReac Type Severity Reaction Status Date / Time No Known Drug Allergies Allergy Unverified 04/07/18 10:08 Travel Screening - Travel/Exposure Within Last 30 Days Have you traveled within the last 30 days?: No Review of Systems Reviewed: No additional complaints except as noted below Constitutional: Reports: As per HPI. Denies: Chills, Fever, Malaise, Night sweats, Weakness, Weight change Eyes: Reports: As per HPI. Denies: Eye discharge, Eye pain, Photophobia, Vision change ENT: Reports: As per HPI. Denies: Congestion, Dental pain, Ear pain, Epistaxis , Hearing loss, Throat pain Respiratory: Reports: As per HPI. Denies: Cough, Dyspnea, Hemoptysis, Stridor, Wheezes Cardiovascular: Reports: As per HPI. Denies: Arrhythmia, Chest pain, Dyspnea on exertion, Edema, Murmurs, Orthopnea, Palpitations, Paroxysmal nocturnal dyspnea, Rheumatic Fever, Syncope Endocrine: Reports: As per HPI. Denies: Fatigue, Heat or cold intolerance, Polydipsia, Polyuria Gastrointestinal: Reports: As per HPI. Denies: Abdominal pain, Constipation, Diarrhea, Hematemesis, Hematochezia, Melena, Nausea, Vomiting Genitourinary: Reports: As per HPI. Denies: Abnormal menses, Discharge, Dyspareunia, Dysuria, Frequency, Hematuria, Incontinence, Retention, Urgency Musculoskeletal: Reports: As per HPI. Denies: Arthralgia, Back pain, Gout, Joint swelling, Myalgia, Neck pain Skin: Reports: As per HPI. Denies: Bruising, Change in color, Change in hair/ nails, Lesions, Pruritus, Rash Neurological: Reports: As per HPI. Denies: Abnormal gait, Confusion, Headache, Numbness, Paresthesias, Seizure, Tingling, Tremors, Vertigo, Weakness Psychiatric: Reports: As per HPI. Denies: Anxiety, Auditory hallucinations, Depression, Homicidal thoughts, Suicidal thoughts, Visual hallucinations Hematological/Lymphatic: Reports: As per HPI. Denies: Anemia, Blood Clots, Easy bleeding, Easy bruising, Swollen glands Past Medical History - SOCIAL HISTORY Smoking Status: Never smoker Alcohol Use: Rare, Occasional Drug Use: None - RESPIRATORY Hx Respiratory Disorders: No - CARDIOVASCULAR Hx Cardio Disorders: No - NEURO Hx Neuro Disorders: Yes Hx Dizziness: Yes (vertigo) - GI Hx GI Disorders: Yes Comment:: colitis - Hx Genitourinary Disorders: No - ENDOCRINE Hx Endocrine Disorders: No - MUSCULOSKELETAL Hx Musculoskeletal Disorders: No - PSYCH Hx Psych Problems: No - HEMATOLOGY/ONCOLOGY Hx Hematology/Oncology Disorders: No Family Medical History Any Significant Family History?: Yes Hx Diabetes: Grandparents Hx Stroke: Father, Grandparents Physical Exam - General General Appearance: Alert, Oriented x3, Cooperative, Mild distress - Head Head exam: Normal inspection - Eye Eye exam: Normal appearance, PERRL, EOMI Pupils: Normal accommodation - ENT ENT exam: Normal exam, Mucous membranes moist, Normal external ear exam, Normal orophraynx, TM's normal bilaterally Ear exam: Normal external inspection. negative: External canal tenderness Nasal Exam: Normal inspection. negative: Discharge, Sinus tenderness Mouth exam: Normal external inspection, Tongue normal Teeth exam: Normal inspection. negative: Dental caries Throat exam: Normal inspection. negative: Tonsillar erythema, Tonsillar exudate - Neck Neck exam: Normal inspection, Full ROM. negative: Tenderness - Respiratory Respiratory exam: Normal lung sounds bilaterally. negative: Respiratory distress - Cardiovascular Cardiovascular Exam: Regular rate, Normal rhythm, Normal heart sounds - GI/Abdominal GI/Abdominal exam: Soft, Normal bowel sounds, Tenderness (epigastric) - Rectal Rectal exam: Deferred - exam: Deferred - Extremities Extremities exam: Normal inspection, Full ROM, Normal capillary refill. negative: Tenderness - Back Back exam: Reports: Normal inspection, Full ROM. Denies: Muscle spasm, Rash noted, Tenderness - Neurological Neurological exam: Alert, Normal gait, Oriented X3, Reflexes normal - Psychiatric Psychiatric exam: Normal affect, Normal mood - Skin Skin exam: Dry, Intact, Normal color, Warm Course Vital Signs 08/03/18 12:42 Temperature 98.2 F Pulse Rate 83 Respiratory 18 Rate Blood Pressure 148/81 Pulse Ox 95 Medical Decision Making - Lab Data Result diagrams: 08/03/18 13:50 08/03/18 13:50 Disposition Disposition: Discharge Clinical Impression: Epiploic appendagitis Disposition: Home, Self-Care Condition: (1) Good Instructions: Abdominal Pain (ED) Additional Instructions: follow up with dr carmona. return sooner if worse. Prescriptions: Hydrocodone/Acetaminophen [Cook 5-325 Tablet] 1 each PO Q6HR #7 tablet Amoxicillin/Potassium Clav [Augmentin 875Mg/125Mg] 1 each PO BID #14 tablet Forms: Patient Portal Access Quality - Quality Measures Quality Measures: N/A - Blood Pressure Screening Does Patient Have Any of the Following: No Blood Pressure Classification: Pre-Hypertensive BP Reading Systolic Measurement: 148 Diastolic Measurement: 81 Screening for High Blood Pressure: < Pre-Hypertensive BP, F/U Documented > [ G8950] Pre-Hypertensive Follow-up Interventions: Follow-up with rescreen every year.
[2018-08-03] MEDS ORDERED: MAGNESIUM HYDROXIDE/AL HYDROX 30 ML, LIDOCAINE VISC 2% 15ML 15 ML PO ONE ×2 (13:40)
[2018-08-03 14:05] LABS: BASO % 0.4 % (0-6); EOS % 2.4 % (0-6); GRAN % 61.8 % (47-80); HEMATOCRIT 45.3 % (35.0-47.0); HEMOGLOBIN 14.8 gm/dl (11.6-16.0); LYMPH % 27.5 % (16-45); MEAN CELL VOLUME 95.4 fl (81-97); MEAN CORPUSCULAR HEMOGLOBIN 31.2 pg (27-33); MEAN CORPUSCULAR HGB CONC 32.7 g/dl (32-36); MEAN PLATELET VOLUME 9.9 fl (7.4-10.4); MONO % 7.9 % (0-9); PLATELET COUNT 626 K/uL (130-400); RED BLOOD COUNT 4.75 M/uL (3.80-5.40); RED CELL DISTRIBUTION WIDTH 15.4 % (11.5-14.5); WHITE BLOOD COUNT W/O DIFF 13.4 K/uL (4.2-12.2)
[2018-08-03 14:09] LABS: URINE APPEARANCE CLEAR; URINE BILIRUBIN NEGATIVE (NEGATIVE); URINE BLOOD MODERATE (NEGATIVE); URINE COLOR YELLOW; URINE GLUCOSE (UA) NEGATIVE (NEGATIVE); URINE KETONE NEGATIVE (NEGATIVE); URINE LEUKOCYTE ESTERASE NEGATIVE (NEGATIVE); URINE NITRITE NEGATIVE (NEGATIVE); URINE PROTEIN NEGATIVE (NEGATIVE); URINE UROBILINOGEN 0.2 E.U./dL (0.20 - 1.00)
[2018-08-03 14:20] LABS: BLOOD UREA NITROGEN 15 mg/dL (6-20); CREATININE 0.6 mg/dL (0.5-0.9); EST GLOMERULAR FILTRATION RATE > 60 mL/min; LIPASE 22 U/L (13-60); TOTAL PROTEIN 7.8 g/dL (6.6-8.7)
[2018-08-03 14:22] LABS: GLUCOSE,RANDOM 100 mg/dL (74-109)
[2018-08-03 14:25] LABS: ALBUMIN 3.8 g/dL (4.0-5.0); ALKALINE PHOSPHATASE 92 U/L (45-87); ALT/SGPT 18 U/L (<33); AST/SGOT 15 U/L (10.0-35.0)
[2018-08-03 14:42] LABS: URINE EPITHELIAL CELLS 0 - 2 (FEW); URINE RBC 0 - 2 (NONE SEEN); URINE WBC 0 - 2 (0-2/hpf)
--- NOTE | 2018-08-04 18:32 | CT SCAN REPORT ---
EXAM: CT SCAN ABDOMEN/PELVIS WO CONTRAST HISTORY: EPIGASTRIC PAIN FOR THE PAST FOUR DAYS. TECHNIQUE: Standard CT imaging of the abdomen and pelvis was performed without contrast. COMPARISON: 12/24/2017. FINDINGS: The lung bases are clear. The liver is normal. The gallbladder is surgically absent. The biliary tree, pancreas, and adrenal glands are normal. The spleen is small in size and unchanged. The kidneys and ureters are unremarkable. The aorta is normal in caliber. There are scattered nonenlarged retroperitoneal and mesenteric lymph nodes, which appear similar to the previous examination. No pathologic lymphadenopathy is identified. There is a focal area of fat stranding within the fat superior to the mid transverse colon. The colon itself appears normal. This pattern is consistent with epiploic appendagitis. There is a calcified appendicolith at the base of the appendix, which is unchanged. The remaining portions of the appendix are unremarkable. There are no focal inflammatory changes. The small bowel loops are normal in caliber. There is a 3 cm cyst within the right ovary. The uterus and adnexa are otherwise normal. The urinary bladder is unremarkable. There is a small fat-containing umbilical/periumbilical hernia. Degenerative changes are present within the spine. IMPRESSION: 1. FINDINGS CONSISTENT WITH EPIPLOIC APPENDAGITIS JUST SUPERIOR TO THE MID TRANSVERSE COLON. 2. STABLE APPENDICOLITH WITH NO ASSOCIATED INFLAMMATORY CHANGES. 3. A 3 CM RIGHT OVARIAN CYST. 4. SMALL FAT-CONTAINING UMBILICAL/PERIUMBILICAL HERNIAS. JOB NUMBER: [id number] [facility]
== END 2018-08-03 16:16 | disposition home or self-care (01) ==
LOC: ER 12:35
DX: K63.89 Other specified diseases of intestine (principal)
CPT/HCPCS: 74176; 80053; 81001; 83690; 85025; 99284; J7030